=== PATIENT | male | born 1970 | race Caucasian/White ===

== ENCOUNTER 2018-03-22 16:39 | Emergency (ER) | payer MEDICAID ==
--- NOTE | 2018-03-22 17:04 | XRAY ---
Indication: Dislocation. Comparison: None 3 views of the left shoulder demonstrates anterior inferior humeral head dislocation. 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 No other bony, articular, or soft tissue abnormalities.
[2018-03-22] MEDS ORDERED: MORPHINE SULFATE 4 MG INJ IV ONE (17:08)
--- NOTE | 2018-03-22 17:08 | ERPHSYRPT ---
- History of Present Illness Time Seen by Provider: 03/22/18 16:58 Source: patient Exam Limitations: no limitations Patient Subjective Stated Complaint: was reaching and felt shoulder pop out of place.. has hx of dislocation approx 3 weeks ago. Triage Nursing Assessment: alert and obvious deformity to left shoulder. has hx dislocation. + radial pulse present. + cap refill. denies direct injury to the shoulder. Physician History: 47-year-old white male arrives with complaint of dislocated left shoulder symptoms for 1-1/2 hours. According to patient he was reaching and his left shoulder dislocated. He states he had a similar dislocation approximately 3 weeks ago which was reduced in [place]. Patient was apparently a very difficult reduction and had to be transferred from [place] to [place] achieve reduction. Past medical history includes high blood pressure seizures Past surgical history includes negative Social history positive tobacco negative drugs occasional alcohol. Occurred: this afternoon (1-1/2 hours ago) Method of Injury: other (reaching with his arm) Quality: constant Severity of Pain-Max: moderate Severity of Pain-Current: moderate Extremities Pain Location: shoulder: left Modifying Factors: Improves With: nothing Associated Symptoms: none Allergies/Adverse Reactions: No Known Drug Allergies Allergy (Unverified 03/22/18 18:01) Immunizations Up to Date: Yes - Review of Systems Constitutional: No Fever, No Chills Eyes: No Symptoms Ears, Nose, & Throat: No Symptoms Respiratory: No Cough, No Dyspnea Cardiac: No Chest Pain, No Edema, No Syncope Abdominal/Gastrointestinal: No Abdominal Pain, No Nausea, No Vomiting, No Diarrhea Genitourinary Symptoms: No Dysuria Musculoskeletal: Other (left shoulder pain and deformity) Skin: No Rash Neurological: No Dizziness, No Focal Weakness, No Sensory Changes Psychological: No Symptoms Endocrine: No Symptoms All Other Systems: Reviewed and Negative - Past Medical History Pertinent Past Medical History: Yes Neurological History: Seizures Cardiac History: Hypertension - Past Surgical History Past Surgical History: Yes - Social History Smoking Status: Never smoker Exposure to second hand smoke: No Drug Use: none Patient Lives Alone: No - Nursing Vital Signs Nursing Vital Signs: Initial Vital Signs Temperature 98 F 03/22/18 16:51 Pulse Rate 82 03/22/18 16:51 Respiratory Rate 18 03/22/18 16:51 Blood Pressure 173/109 03/22/18 16:51 O2 Sat by Pulse Oximetry 99 03/22/18 16:51 Pain Scale Pain Intensity 6 - Physical Exam General Appearance: mild distress Eyes, Ears, Nose, Throat Exam: moist mucous membranes Neck Exam: non-tender, supple Cardiovascular/Respiratory Exam: chest non-tender, normal breath sounds, regular rate/rhythm, no respiratory distress Abdominal Exam: non-tender, No guarding Back Exam: normal inspection, No vertebral tenderness Shoulder Exam: No normal inspection (left shoulder palpable deformity, decreased range of motion left shoulder, left radial and ulnar pulses intact 2/ 4 good capillary refill left fingers sensation intact left fingers.) Elbow/Forearm Exam: normal inspection, non-tender, no evidence of injury, normal ROM Wrist Exam: normal inspection, non-tender, no evidence of injury, normal ROM Hand Exam: normal inspection, non-tender, no evidence of injury, normal ROM Neuro/Tendon Exam: normal sensation, normal motor functions Mental Status Exam: alert, oriented x 3, cooperative Skin Exam: normal color, warm, dry SpO2 Interpretation: normal (99%) SpO2: 99 - Course Nursing assessment & vital signs reviewed: Yes EKG Interpreted by Me: RATE (75 bpm), NORMAL AXIS, Other (EKG: Sinus rhythm, moderate amount of artifact, 75 bpm, normal axis, no acute ST or T wave changes noted) - Radiology Exams Left Shoulder X-ray Interpretation: Discussed w/ radiologist (x-ray left shoulder: Impression : Anterior inferior humeral head dislocation. 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 No other bony, articulular or soft tissue abnormalies.) Shoulder X-ray Interpretation: Interpreted by me (x-ray left shoulder: Successful reduction left humeral head) Ordered Tests: Active Orders 24 hr Category Date Time Status Trace Evidence Technician STAT Care 03/22/18 17:10 Active EKG-ER Only STAT Care 03/22/18 17:08 Active IV Insertion STAT Care 03/22/18 17:08 Active SHOULDER Stat Exams 03/22/18 16:58 Completed SHOULDER Stat Exams 03/22/18 17:35 Taken Medication Summary Generic Name Dose Route Start Last Admin Trade Name Freq PRN Reason Stop Dose Admin Sodium Chloride 1,000 mls @ 100 mls/hr 03/22/18 17:15 03/22/18 17:15 Sodium Chloride 0.9% 1000 Ml IV 04/21/18 17:14 100 mls/hr .Q10H THADDEUS Administration Discontinued Medications Generic Name Dose Route Start Last Admin Trade Name David PRN Reason Stop Dose Admin Morphine Sulfate 4 mg 03/22/18 17:08 03/22/18 17:17 Morphine Sulfate 4 Mg Inj IV 03/22/18 17:09 4 mg STAT ONE Administration Morphine Sulfate Confirm 03/22/18 17:16 Morphine Sulfate 4 Mg Inj Administered 03/22/18 17:17 Dose 4 mg .ROUTE .STK-MED ONE - Progress Progress: improved Progress Note: 03/22/18 17:35 47-year-old white male with history of multiple right shoulder dislocations in the past. Patient with a left shoulder dislocation approximately 3 weeks ago which was reduced in [place]. He arrives with complaint of pain in deformity of his left shoulder for 1-1/2 hours. He states he was reaching out to at the gate at work when he experienced the above symptoms. On of presentation patient is alert oriented 3. Patient's head is atraumatic nose is clear throat is clear. Airway is clear. Neck is supple. Lungs are clear. Heart is regular. Abdomen soft nontender nondistended positive bowel sounds. Extremities left shoulder with obvious deformity full range of motion left elbow hand and wrist good capillary refill all fingers radial and ulnar pulses intact 2 over 4 sensation intact to all fingers. Neuro patient alert oriented 3 cranial nerves II through XII are intact DTRs symmetrical 2 over 4 [place] Coma Scale is 15. X-ray of the left shoulder is remarkable for an anterior inferior humeral head dislocation there is an incidental inferior glenoid process 7 mm heterotrophic ossification and 1.8 cm humeral head bone cysts no other bony articular soft tissue abnormalities. Patient with a EKG that shows sinus rhythm 75 bpm normal axis no acute ST or T wave changes are noted. Patient's vitals are stable. Procedure. Close reduction left shoulder dislocation. Moderate sedation. Consent is signed for moderate sedation. Patient is given 4 mg of morphine he is started on normal saline 100 mL per hour. Patient is given 140 mg of propofol to achieve sedation. Shoulder is reduced with countertraction and traction in the usual manner. Patient neurovascular intact after reduction sling and swath has been placed. Post reduction films have been ordered. 03/22/18 18:02 Postreduction film left shoulder: Successful reduction no fractures. Patient feeling much better he is awake and alert. Sling and swath applied by patient's nurse. Will send patient home with a small amount of [place] for pain he is to ice and elevate his left shoulder 24-48 hours. It is advised to follow-up with his family doctor or orthopedist in 24-48 hours. - Departure Time of Disposition: 18:15 Departure Disposition: Home Clinical Impression: closed reduction l shoulder dislocation, moderate sedation Dislocation of left shoulder joint Qualifiers: Encounter type: initial encounter Qualified Code(s): S43.005A - Unspecified dislocation of left shoulder joint, initial encounter Condition: Fair Critical Care Time: No Instructions: Shoulder Dislocation Additional Instructions: Return home, Cold packs left shoulder 24-48 hours leave sling on, Follow-up with your orthopedist, family physician, [facility] fracture clinic(tomorrow 8:00 am) [place] 5/325 #12 one orally every 4 hours as needed for pain. Return for acute distress or for severe symptoms. no driving today. Prescriptions: Hydrocodone/APAP 5-325 Tab^^^ [[place] 5-325 Tablet^^^] 1 tab PO Q4HPRN PRN #12 tablet MDD 6 PRN Reason: Pain
[2018-03-22] MEDS ORDERED: DIPRIVAN 200 MG/20 ML IV ONE (17:10)
[2018-03-22] MEDS ORDERED: Sodium Chloride 0.9% 1000 ML 1,000 ML IV SCH (17:15)
[2018-03-22] MEDS ORDERED: MORPHINE SULFATE 4 MG INJ ONE (17:16)
[2018-03-22] MEDS ORDERED: Sodium Chloride 0.9% 1000 ML 1,000 ML ONE (17:18)
[2018-03-22 18:37] VITALS: BP 167/93; PULSE 72; O2SAT 100
--- NOTE | 2018-03-23 08:33 | XRAY ---
Indication: Post reduction. Comparison: Taken earlier in the day. 3 views of the left shoulder demonstrates successful reduction of previous humeral head dislocation. Stable humeral head bone cyst and inferior glenoid process ossifications.
== END 2018-03-22 18:40 | disposition home or self-care (01) ==
LOC: ED 16:39
DX: S43.005A Unspecified dislocation of left shoulder joint, initial encounter (principal); X50.0XXA Overexertion from strenuous movement or load, initial encounter; I10 Essential (primary) hypertension; G40.919 Epilepsy, unspecified, intractable, without status epilepticus
CPT/HCPCS: 23650; 36000; 73030; 93005; 93041; 96374; 99284; J2270; J2704

== ENCOUNTER 2018-06-01 22:10 | Emergency (ER) | payer BC, MEDICAID ==
--- NOTE | 2018-06-01 22:31 | ERPHSYRPT ---
- History of Present Illness Time Seen by Provider: 06/01/18 22:31 Source: patient Exam Limitations: no limitations Patient Subjective Stated Complaint: pt states he was sitting on his cough, sneezed hard, and dislocated his shoulder Triage Nursing Assessment: pt alert and oreinted, answers questions approp. pt ambulatory with steady gait noted, respirations nonlabored with lungs cta. skin pink warm and dry. pt restless in bed. deformity noted to lt shoulder. radila pulse and cap refill wnl to lt arm. Physician History: 47 y/o white male with h/o left shoulder dislocation approx 2 months ago and right shoulder dislocation several years ago. 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 Occurred: just prior to arrival Method of Injury: other (sneezed) Severity of Pain-Max: moderate Severity of Pain-Current: moderate Extremities Pain Location: shoulder: left Modifying Factors: Improves With: immobilization Associated Symptoms: none Allergies/Adverse Reactions: No Known Drug Allergies Allergy (Verified 06/01/18 22:47) Hx Tetanus, Diphtheria Vaccination/Date Given: Yes Hx Influenza Vaccination/Date Given: No Hx Pneumococcal Vaccination/Date Given: No Immunizations Up to Date: Yes - Review of Systems Constitutional: No Symptoms Eyes: No Symptoms Ears, Nose, & Throat: No Symptoms Respiratory: No Symptoms Cardiac: No Symptoms Abdominal/Gastrointestinal: No Symptoms Genitourinary Symptoms: No Symptoms Musculoskeletal: Joint Pain (left shoulder ) Skin: No Symptoms Neurological: No Symptoms Psychological: No Symptoms Hematologic/Lymphatic: No Symptoms Immunological/Allergic: No Symptoms (left shoulder) All Other Systems: Reviewed and Negative - Past Medical History Pertinent Past Medical History: Yes Neurological History: Seizures Cardiac History: Hypertension Respiratory History: No Pertinent History Endocrine Medical History: No Pertinent History Musculoskeletal History: Other (prior bilat shoulder dislocations) GI Medical History: No Pertinent History History: No Pertinent History Psycho-Social History: No Pertinent History Male Reproductive Disorders: No Pertinent History - Past Surgical History Past Surgical History: Yes Neuro Surgical History: No Pertinent History Cardiac: No Pertinent History Respiratory: No Pertinent History Gastrointestinal: No Pertinent History Genitourinary: No Pertinent History Musculoskeletal: No Pertinent History Male Surgical History: No Pertinent History - Social History Smoking Status: Current some day smoker How long have you smoked: yrs Exposure to second hand smoke: No Drug Use: none Patient Lives Alone: Yes - Nursing Vital Signs Nursing Vital Signs: Initial Vital Signs Temperature 98.8 F 06/01/18 22:24 Pulse Rate 85 06/01/18 22:24 Respiratory Rate 18 06/01/18 22:24 Blood Pressure 152/94 06/01/18 22:24 O2 Sat by Pulse Oximetry 98 06/01/18 22:24 Pain Scale Pain Intensity 8 - Physical Exam General Appearance: mild distress, alert, anxiety Eyes, Ears, Nose, Throat Exam: normal ENT inspection, moist mucous membranes Neck Exam: normal inspection, non-tender, supple, full range of motion Cardiovascular/Respiratory Exam: chest non-tender, normal breath sounds, regular rate/rhythm Abdominal Exam: non-tender Back Exam: normal inspection, normal range of motion, No CVA tenderness, No vertebral tenderness Shoulder Exam: bone tenderness, deformity (c/w anteroinferior left shoulder dislocation), soft tissue tenderness Elbow/Forearm Exam: normal inspection, non-tender, no evidence of injury, normal ROM Wrist Exam: normal inspection, non-tender, no evidence of injury, normal ROM Hand Exam: normal inspection, non-tender, no evidence of injury, normal ROM Neuro/Tendon Exam: normal sensation, normal motor functions, normal tendon functions, responds to pain, no evidence tendon injury Mental Status Exam: alert, oriented x 3, cooperative, agitated, uncooperative Skin Exam: normal color, warm, dry SpO2 Interpretation: normal SpO2: 98 O2 Delivery: Room Air Procedures - Joint Reduction Timeout: Performed Joint Reduction Site: Left, shoulder Conscious Sedation: Yes Reduction Attempts: 1 Pre-Procedure Neurovascular Exam: neurovascular intact, well perfused, no neuro deficit Post Procedure Neurovascular Exam: neurovascular intact, good alignment, unchanged from pre-exam Post Joint Reduction Film: joint reduced Progress: pt tolerated well. no complications - Course Nursing assessment & vital signs reviewed: Yes Ordered Tests: Active Orders 24 hr Category Date Time Status IV Insertion STAT Care 06/01/18 22:36 Active SHOULDER Stat Exams 06/01/18 22:35 Ordered SHOULDER Stat Exams 06/01/18 23:22 Ordered Medication Summary Generic Name Dose Route Start Last Admin Trade Name Freq PRN Reason Stop Dose Admin Etomidate 10 mg 06/01/18 23:22 Amidate 20 Mg/10 Ml IV 06/01/18 23:23 STAT ONE Hydromorphone HCl 1 mg 06/01/18 23:23 Hydromorphone 1 Mg/Ml Ampule IV 06/01/18 23:24 STAT ONE Discontinued Medications Generic Name Dose Route Start Last Admin Trade Name David PRN Reason Stop Dose Admin Hydromorphone HCl 1 mg 06/01/18 22:36 06/01/18 22:56 Hydromorphone 1 Mg/Ml Ampule IV 06/01/18 22:37 1 mg STAT ONE Administration Hydromorphone HCl Confirm 06/01/18 22:49 Hydromorphone 1 Mg/Ml Ampule Administered 06/01/18 22:50 Dose 1 mg .ROUTE .STK-MED ONE Hydromorphone HCl Confirm 06/01/18 23:05 Hydromorphone 1 Mg/Ml Ampule Administered 06/01/18 23:06 Dose 1 mg .ROUTE .STK-MED ONE Sodium Chloride Confirm 06/01/18 23:11 Sodium Chloride 0.9% 1000 Ml Administered 06/01/18 23:12 Dose 1,000 mls @ ud .ROUTE .STK-MED ONE Lorazepam 2 mg 06/01/18 22:36 06/01/18 22:56 Ativan 2 Mg/1 Ml Vial IV 06/01/18 22:37 2 mg STAT ONE Administration Lorazepam Confirm 06/01/18 22:48 Ativan 2 Mg/1 Ml Vial Administered 06/01/18 22:49 Dose 2 mg .ROUTE .STK-MED ONE Ondansetron HCl 4 mg 06/01/18 22:36 06/01/18 22:56 Zofran 4 Mg/2 Ml Vial IV 06/01/18 22:37 4 mg STAT ONE Administration Ondansetron HCl Confirm 06/01/18 22:48 Zofran 4 Mg/2 Ml Vial Administered 06/01/18 22:49 Dose 4 mg .ROUTE .STK-MED ONE - Progress Progress: improved, re-examined Progress Note: 06/01/18 23:32 pre reduction xray left shoulder-anteroinferior dislocation. no fx post reduction xrayleft shoulder-successful reduction. no fx Counseled pt/family regarding: diagnosis, need for follow-up, rad results - Departure Departure Disposition: Home Clinical Impression: Dislocation of left shoulder joint
[2018-06-01] MEDS ORDERED: Ativan 2 MG/1 ML VIAL IV ONE (22:36)
[2018-06-01] MEDS ORDERED: Zofran 4 MG/2 ML VIAL IV ONE (22:36)
[2018-06-01] MEDS ORDERED: Hydromorphone 1 mg/ml Ampule IV ONE ×2 (22:36→23:23)
[2018-06-01] MEDS ORDERED: Zofran 4 MG/2 ML VIAL ONE (22:48)
[2018-06-01] MEDS ORDERED: Ativan 2 MG/1 ML VIAL ONE (22:48)
[2018-06-01] MEDS ORDERED: Hydromorphone 1 mg/ml Ampule ONE ×2 (22:49→23:05)
[2018-06-01] MEDS ORDERED: Sodium Chloride 0.9% 1000 ML 1,000 ML ONE (23:11)
[2018-06-01] MEDS ORDERED: Amidate 20 MG/10 ML IV ONE (23:22)
[2018-06-01 23:54] VITALS: PULSE 70
[2018-06-02 00:22] VITALS: BP 123/85; O2SAT 94
[2018-06-02] MEDS ORDERED: Sodium Chloride 0.9% 1000 ML 1,000 ML IV SCH (01:15)
--- NOTE | 2018-06-02 09:23 | XRAY ---
Indication: Shoulder dislocation. Comparison: March 22, 2018. 3 views of the left shoulder demonstrates recurrent anterior inferior humeral head dislocation. Stable inferior glenoid process heterotopic ossification and humeral head bone cyst. No other bony, articular, or soft tissue abnormalities.
--- NOTE | 2018-06-02 09:23 | XRAY ---
Indication: Postreduction. 2 views of the left shoulder demonstrates successful reduction of previous humeral head dislocation with stable humeral head bone cyst and inferior glenoid process ossifications.
== END 2018-06-02 00:35 | disposition home or self-care (01) ==
LOC: ED 22:10
DX: S43.005A Unspecified dislocation of left shoulder joint, initial encounter (principal); X50.0XXA Overexertion from strenuous movement or load, initial encounter; M25.512 Pain in left shoulder; G40.909 Epilepsy, unspecified, not intractable, without status epilepticus; I10 Essential (primary) hypertension
CPT/HCPCS: 23650; 36000; 73030; 96360; 96374; 96375; 96376; 99284; J1170; J2060; J2405

== ENCOUNTER 2018-06-27 07:15 | Emergency (ER) | payer BC ==
[2018-06-27] MEDS ORDERED: Sodium Chloride 0.9% 1000 ML 1,000 ML IV STA (07:39)
[2018-06-27] MEDS ORDERED: Sodium Chloride 0.9% 1000 ML 1,000 ML ONE ×2 (07:55→09:41)
[2018-06-27] MEDS ORDERED: Hydromorphone 1 mg/ml Ampule IV ONE ×3 (07:55→10:40)
[2018-06-27] MEDS ORDERED: Hydromorphone 1 mg/ml Ampule ONE ×3 (07:58→10:43)
[2018-06-27] MEDS ORDERED: Ativan 2 MG/1 ML VIAL IV ONE (08:08)
[2018-06-27] MEDS ORDERED: Ativan 2 MG/1 ML VIAL ONE (08:11)
--- NOTE | 2018-06-27 08:41 | XRAY ---
Indication: Shoulder dislocation. Comparison: June 01, 2018. 2 views of the left shoulder again demonstrates anterior inferior humeral head dislocation. Stable humeral head bone cyst. No other bony, articular, or soft tissue abnormalities.
--- NOTE | 2018-06-27 08:45 | XRAY ---
Indication: Repeat dislocation. Comparison: Taken earlier in the day. 3 views of the left shoulder unchanged again demonstrating anterior inferior humeral head dislocation and humeral head bone cyst. No other bony, articular, or soft tissue abnormalities.
[2018-06-27] MEDS ORDERED: Amidate 20 MG/10 ML IV ONE (08:48)
[2018-06-27] MEDS ORDERED: Sodium Chloride 0.9% 1000 ML 1,000 ML IV SCH (09:30)
--- NOTE | 2018-06-27 09:47 | ERPHSYRPT ---
- History of Present Illness Source: patient Exam Limitations: no limitations Patient Subjective Stated Complaint: pt reports his left shoulder is dislocated , states he was rolling over to shut his alarm clock off when it dislocated, reports he was here recently for this same issue. pt reports pain is worse with movement of the left arm. Triage Nursing Assessment: pt is aox3, pupils perrl, afebrile, resps easy and non labored, radial pulses strong and equal, sensation is intact, obvious deformity noted to the left shoulder. ROM limited due to pain. pain increased with movement of the left extremity. Physician History: Pt is a 47 y/o male with extensive h/o L shoulder dislocation. Pt woke up today , and reached out to close the alarm clock, and his L shoulder dislocated. Pt is in marked pain and discomfort. He states, was recommended to f/u with Ortho , but as of now, he did not had to have surgery. Occurred: just prior to arrival Quality: sharpness, stabbing, throbbing Severity of Pain-Max: severe Severity of Pain-Current: severe Extremities Pain Location: shoulder: left (dislocated) Modifying Factors: Improves With: immobilization, pain medication Associated Symptoms: none Allergies/Adverse Reactions: No Known Drug Allergies Allergy (Verified 06/27/18 07:32) Hx Tetanus, Diphtheria Vaccination/Date Given: Yes Hx Influenza Vaccination/Date Given: No Hx Pneumococcal Vaccination/Date Given: No Immunizations Up to Date: Yes - Review of Systems Constitutional: No Fever, No Chills Respiratory: No Cough, No Dyspnea Cardiac: No Chest Pain, No Edema, No Syncope Musculoskeletal: Joint Pain (L shoulder), Joint Swelling Neurological: No Dizziness, No Focal Weakness, No Sensory Changes - Past Medical History Pertinent Past Medical History: Yes Neurological History: Seizures Cardiac History: Hypertension Respiratory History: No Pertinent History Endocrine Medical History: No Pertinent History Musculoskeletal History: Other GI Medical History: No Pertinent History History: No Pertinent History Psycho-Social History: No Pertinent History Male Reproductive Disorders: No Pertinent History Other Medical History: shoulder dislocation - Past Surgical History Past Surgical History: Yes Neuro Surgical History: No Pertinent History Cardiac: No Pertinent History Respiratory: No Pertinent History Gastrointestinal: No Pertinent History Genitourinary: No Pertinent History Musculoskeletal: No Pertinent History Male Surgical History: No Pertinent History - Social History Smoking Status: Current every day smoker How long have you smoked: yrs Exposure to second hand smoke: No Drug Use: none Patient Lives Alone: No - Nursing Vital Signs Nursing Vital Signs: Initial Vital Signs Temperature 97.9 F 06/27/18 07:20 Pulse Rate 82 06/27/18 07:20 Respiratory Rate 20 06/27/18 07:20 Blood Pressure 133/83 06/27/18 07:20 O2 Sat by Pulse Oximetry 100 06/27/18 07:20 Pain Scale Pain Intensity 5 - Physical Exam General Appearance: moderate distress Back Exam: normal inspection, No vertebral tenderness Shoulder Exam: asymmetry (L sholder anterior dislocation), deformity, limited ROM Elbow/Forearm Exam: normal inspection Wrist Exam: normal inspection Hand Exam: normal inspection Neuro/Tendon Exam: normal sensation, normal motor functions SpO2: 98 - Course Nursing assessment & vital signs reviewed: Yes - Radiology Exams Left Shoulder X-ray Interpretation: Reviewed by me (L shoulder with anterior inferior dislocation) Ordered Tests: Active Orders 24 hr Category Date Time Status IV Insertion STAT Care 06/27/18 10:07 Active SHOULDER Stat Exams 06/27/18 07:40 Completed SHOULDER Stat Exams 06/27/18 08:23 Completed SHOULDER Stat Exams 06/27/18 09:18 Completed Medication Summary Generic Name Dose Route Start Last Admin Trade Name Freq PRN Reason Stop Dose Admin Sodium Chloride 1,000 mls @ 100 mls/hr 06/27/18 09:30 06/27/18 09:35 Sodium Chloride 0.9% 1000 Ml IV 07/27/18 09:29 100 mls/hr .Q10H THADDEUS Administration Discontinued Medications Generic Name Dose Route Start Last Admin Trade Name Freq PRN Reason Stop Dose Admin Etomidate 10 mg 06/27/18 08:48 06/27/18 09:06 Amidate 20 Mg/10 Ml IV 06/27/18 08:49 10 mg STAT ONE Administration Hydromorphone HCl 1 mg 06/27/18 07:55 06/27/18 08:02 Hydromorphone 1 Mg/Ml Ampule IV 06/27/18 07:56 1 mg STAT ONE Administration Hydromorphone HCl Confirm 06/27/18 07:58 Hydromorphone 1 Mg/Ml Ampule Administered 06/27/18 07:59 Dose 1 mg .ROUTE .STK-MED ONE Hydromorphone HCl Confirm 06/27/18 09:23 Hydromorphone 1 Mg/Ml Ampule Administered 06/27/18 09:24 Dose 1 mg .ROUTE .STK-MED ONE Hydromorphone HCl 1 mg 06/27/18 09:25 06/27/18 09:25 Hydromorphone 1 Mg/Ml Ampule IV 06/27/18 09:26 1 mg STAT ONE Administration Sodium Chloride 1,000 mls @ 999 mls/hr 06/27/18 07:39 06/27/18 09:40 Sodium Chloride 0.9% 1000 Ml IV 06/27/18 08:39 Infused .Q1H1M STA Infusion Sodium Chloride Confirm 06/27/18 07:55 Sodium Chloride 0.9% 1000 Ml Administered 06/27/18 07:56 Dose 1,000 mls @ ud .ROUTE .STK-MED ONE Sodium Chloride Confirm 06/27/18 09:41 Sodium Chloride 0.9% 1000 Ml Administered 06/27/18 09:42 Dose 1,000 mls @ ud .ROUTE .STK-MED ONE Lorazepam 2 mg 06/27/18 08:08 06/27/18 08:12 Ativan 2 Mg/1 Ml Vial IV 06/27/18 08:09 2 mg STAT ONE Administration Lorazepam Confirm 06/27/18 08:11 Ativan 2 Mg/1 Ml Vial Administered 06/27/18 08:12 Dose 2 mg .ROUTE .STK-MED ONE - Progress Progress: unchanged Progress Note: 06/27/18 09:44 Pt presented with L shoulder dislocation. I did give the pt Dilaudid 1mgx2, Ativan IV 2mg and Etomidate 10mg IV. Multiple attempts were made, and as I do feel that the shoulder is getting in place, with ROM, it is immediately dislocated. Secondary to multiple attempts with no resolution, and Pt with extensive history of dislocation, [facility] and pt was auto accepted. Dr Morgan accepted. 06/27/18 10:40 Will see patient in: other (Transfer pt to [facility]) - Departure Departure Disposition: Transfer Clinical Impression: Recurrent dislocation, left shoulder Condition: Stable Critical Care Time: No Referrals: DOCTOR,NO FAMILY [Primary Care Provider] - Additional Instructions: Pt to be transferred to [facility]. Dr Morgan is accepting.
--- NOTE | 2018-06-27 10:07 | XRAY ---
Indication: Post reduction. 3 frontal views of the left shoulder unchanged again demonstrating anterior inferior humeral head dislocation and humeral head bone cyst.
[2018-06-27 10:40] VITALS: O2SAT 98
[2018-06-27 11:32] VITALS: BP 132/95; PULSE 73
== END 2018-06-27 11:31 | disposition short-term general hospital (02) ==
LOC: ED 07:15
DX: M24.412 Recurrent dislocation, left shoulder (principal); X50.0XXA Overexertion from strenuous movement or load, initial encounter; X50.9XXA Other and unspecified overexertion or strenuous movements or postures, initial encounter; Y93.89 Activity, other specified; Y92.003 Bedroom of unspecified non-institutional (private) residence as the place of occurrence of the external cause
CPT/HCPCS: 36000; 73030; 96360; 96361; 96374; 96375; 96376; 99285; J1170; J2060; L3650

== ENCOUNTER 2018-10-21 18:36 | Emergency (ER) | payer BC ==
[2018-10-21 18:48] VITALS: BP 126/83; PULSE 100; O2SAT 96
--- NOTE | 2018-10-21 19:14 | ERPHSYRPT ---
- History of Present Illness Time Seen by Provider: 10/21/18 19:05 Source: patient Exam Limitations: no limitations Patient Subjective Stated Complaint: Getting out of hot tub and dislocated left shoulder, hx of left shoulder dislocation x2 previously Triage Nursing Assessment: Pt walked into the ER holding his left arm up, vitals wnl, rates pain 5/10, left shoulder appears dislocated, pulses normal, capillary refill normal Physician History: patient states that the Left shoulder was dislocated - getting out of hot tub - has happened twice in the past. This time in ER apparently went over for XRay and he raised arm overhead and it "popped' yazmin into place. No X Ray shows on the rad screen and patient was seen in Room 4. Wants to leave and follow up with his primary care. He cannot remember the name of the ortho person he saw before with this same shoulder problem. Demonstrates normal ROM. Has sling at home and says will use it. Occurred: just prior to arrival Method of Injury: other (lifting himself out of hot tub) Quality: constant Severity of Pain-Max: moderate Severity of Pain-Current: none (Resoved when self reduced) Extremities Pain Location: shoulder: left Modifying Factors: Improves With: nothing Associated Symptoms: none Allergies/Adverse Reactions: No Known Drug Allergies Allergy (Verified 10/21/18 18:47) Home Medications: Amlodipine Besylate 10 mg PO DAILY 10/21/18 [History] Labetalol HCl 100 mg [Trandate 100 MG] 100 mg PO DAILY 10/21/18 [History] Levetiracetam 500 mg PO UD 10/21/18 [History] Lisinopril 10 mg [Zestril 10 MG] 10 mg PO DAILY 10/21/18 [History] cloNIDine HCl [Clonidine HCl] 0.1 mg PO DAILY 10/21/18 [History] lamoTRIgine [Lamotrigine] 200 mg PO BID 10/21/18 [History] Hx Tetanus, Diphtheria Vaccination/Date Given: Yes Hx Influenza Vaccination/Date Given: No Hx Pneumococcal Vaccination/Date Given: No - Review of Systems Constitutional: No Symptoms Musculoskeletal: Injury (Left shoulder dislocation) Neurological: No Symptoms All Other Systems: Reviewed and Negative - Past Medical History Pertinent Past Medical History: Yes Neurological History: Seizures Cardiac History: Hypertension Respiratory History: No Pertinent History Endocrine Medical History: No Pertinent History Musculoskeletal History: Other GI Medical History: No Pertinent History History: No Pertinent History Psycho-Social History: No Pertinent History Male Reproductive Disorders: No Pertinent History Other Medical History: shoulder dislocation - Past Surgical History Past Surgical History: Yes Neuro Surgical History: No Pertinent History Cardiac: No Pertinent History Respiratory: No Pertinent History Gastrointestinal: No Pertinent History Genitourinary: No Pertinent History Musculoskeletal: No Pertinent History Male Surgical History: No Pertinent History - Social History Smoking Status: Current every day smoker How long have you smoked: yrs Exposure to second hand smoke: Yes Drug Use: none Patient Lives Alone: Yes - Nursing Vital Signs Nursing Vital Signs: Initial Vital Signs Temperature 98.2 F 10/21/18 18:39 Pulse Rate 100 H 10/21/18 18:39 Blood Pressure 126/83 10/21/18 18:39 O2 Sat by Pulse Oximetry 96 10/21/18 18:39 Pain Scale Pain Intensity 5 - Physical Exam General Appearance: no apparent distress Eyes, Ears, Nose, Throat Exam: normal ENT inspection Cardiovascular/Respiratory Exam: chest non-tender, normal breath sounds, no respiratory distress Shoulder Exam: normal inspection, non-tender, no evidence of injury (No contour deformity when seen by me - after self reduction) Elbow/Forearm Exam: normal inspection, non-tender Wrist Exam: normal inspection, non-tender Hand Exam: normal inspection, non-tender Neuro/Tendon Exam: normal sensation, normal motor functions Mental Status Exam: alert, oriented x 3, cooperative Skin Exam: normal color, warm, dry SpO2 Interpretation: normal SpO2: 96 O2 Delivery: Room Air - Departure Departure Disposition: Home Clinical Impression: Shoulder dislocation, recurrent Condition: Good Critical Care Time: No Referrals: DOCTOR,NO FAMILY [Primary Care Provider] - Instructions: Shoulder Dislocation Additional Instructions: Follow up with primary care as planned - also follow up with the orthopedic surgeon who saw you the last time. Use your sling until you have seen either primary care or ortho.
== END 2018-10-21 19:22 | disposition home or self-care (01) ==
LOC: ED 18:36
DX: M24.412 Recurrent dislocation, left shoulder (principal); X50.0XXA Overexertion from strenuous movement or load, initial encounter; Y92.89 Other specified places as the place of occurrence of the external cause; M25.512 Pain in left shoulder
CPT/HCPCS: 99283

== ENCOUNTER 2019-04-14 00:42 | Emergency (ER) | payer SELFPAY ==
--- NOTE | 2019-04-14 00:46 | ERPHSYRPT ---
- History of Present Illness Time Seen by Provider: 04/14/19 00:45 Source: patient, family Exam Limitations: no limitations Physician History: This is a 48-year-old right-handed male who has been seen several times in this emergency room for left shoulder dislocation. Prior to arrival, patient was in his car and he reached over with his left arm to grab something out of the back seat when his left shoulder became dislocated. Patient has a history of hypertension. Patient has no known drug allergies. Patient has significant pain in his left shoulder. Occurred: just prior to arrival Method of Injury: other (Patient reached out and back then dislocated his left shoulder) Quality: aching, throbbing Severity of Pain-Max: moderate Severity of Pain-Current: moderate Extremities Pain Location: shoulder: left Modifying Factors: Improves With: movement Associated Symptoms: none Allergies/Adverse Reactions: No Known Drug Allergies Allergy (Verified 04/14/19 01:04) Home Medications: Amlodipine Besylate 10 mg PO DAILY 10/21/18 [History] Labetalol HCl 100 mg [Trandate 100 MG] 100 mg PO DAILY 10/21/18 [History] Levetiracetam 500 mg PO DAILY 10/21/18 [History] Lisinopril 10 mg [Zestril 10 MG] 10 mg PO DAILY 10/21/18 [History] cloNIDine HCL [Clonidine HCl] 0.1 mg PO DAILY 10/21/18 [History] lamoTRIgine [Lamotrigine] 200 mg PO BID 10/21/18 [History] Hx Tetanus, Diphtheria Vaccination/Date Given: Yes Hx Influenza Vaccination/Date Given: No Hx Pneumococcal Vaccination/Date Given: No - Review of Systems Constitutional: No Symptoms Eyes: No Symptoms Ears, Nose, & Throat: No Symptoms Respiratory: No Symptoms Cardiac: No Symptoms Abdominal/Gastrointestinal: No Symptoms Genitourinary Symptoms: No Symptoms Musculoskeletal: Injury (Left shoulder) Skin: No Symptoms Neurological: No Symptoms Psychological: No Symptoms Endocrine: No Symptoms Hematologic/Lymphatic: No Symptoms Immunological/Allergic: No Symptoms All Other Systems: Reviewed and Negative - Past Medical History Pertinent Past Medical History: Yes Neurological History: Seizures Cardiac History: Hypertension Respiratory History: No Pertinent History Endocrine Medical History: No Pertinent History Musculoskeletal History: Other GI Medical History: No Pertinent History History: No Pertinent History Psycho-Social History: No Pertinent History Male Reproductive Disorders: No Pertinent History Other Medical History: shoulder dislocation - Past Surgical History Past Surgical History: Yes Neuro Surgical History: No Pertinent History Cardiac: No Pertinent History Respiratory: No Pertinent History Gastrointestinal: No Pertinent History Genitourinary: No Pertinent History Musculoskeletal: No Pertinent History Male Surgical History: No Pertinent History - Social History Smoking Status: Current every day smoker How long have you smoked: yrs Exposure to second hand smoke: Yes Drug Use: none Patient Lives Alone: Yes - Nursing Vital Signs Nursing Vital Signs: Initial Vital Signs Temperature 97.9 F 04/14/19 00:53 Pulse Rate 91 H 04/14/19 00:53 Respiratory Rate 18 04/14/19 00:53 Blood Pressure 175/105 04/14/19 00:53 O2 Sat by Pulse Oximetry 97 04/14/19 00:53 Pain Scale Pain Intensity 0 - Physical Exam General Appearance: mild distress, alert, anxiety Eyes, Ears, Nose, Throat Exam: normal ENT inspection Neck Exam: normal inspection, non-tender, supple, full range of motion Cardiovascular/Respiratory Exam: chest non-tender Abdominal Exam: non-tender Back Exam: normal inspection, normal range of motion, No CVA tenderness, No vertebral tenderness Shoulder Exam: bone tenderness (Left lateral upper indentation at the left shoulder joint), deformity, limited ROM, soft tissue tenderness Elbow/Forearm Exam: normal inspection, non-tender, no evidence of injury, normal ROM Wrist Exam: normal inspection, non-tender, no evidence of injury, normal ROM Hand Exam: normal inspection, non-tender, no evidence of injury, normal ROM Neuro/Tendon Exam: normal sensation, normal motor functions, normal tendon functions, responds to pain Mental Status Exam: alert, oriented x 3, cooperative Skin Exam: normal color, warm, dry SpO2 Interpretation: normal O2 Delivery: Room Air - Course Nursing assessment & vital signs reviewed: Yes Ordered Tests: Active Orders 24 hr Category Date Time Status IV Insertion STAT Care 04/14/19 01:00 Active SHOULDER Stat Exams 04/14/19 01:00 Taken SHOULDER Stat Exams 04/14/19 01:35 Ordered Medication Summary Discontinued Medications Generic Name Dose Route Start Last Admin Trade Name Freq PRN Reason Stop Dose Admin Etomidate 10 mg 04/14/19 01:14 04/14/19 01:31 Amidate 20 Mg/10 Ml IV 04/14/19 01:15 10 mg STAT ONE Administration Hydromorphone HCl 1 mg 04/14/19 01:13 04/14/19 01:28 Hydromorphone 1 Mg/Ml Ampule IV 04/14/19 01:14 1 mg STAT ONE Administration Hydromorphone HCl Confirm 04/14/19 01:15 Hydromorphone 1 Mg/Ml Ampule Administered 04/14/19 01:16 Dose 1 mg .ROUTE .STK-MED ONE Ondansetron HCl 4 mg 04/14/19 01:13 04/14/19 01:29 Zofran 4 Mg/2 Ml Vial IV 04/14/19 01:14 4 mg STAT ONE Administration Ondansetron HCl Confirm 04/14/19 01:15 Zofran 4 Mg/2 Ml Vial Administered 04/14/19 01:16 Dose 4 mg .ROUTE .STK-MED ONE - Progress Progress: improved, re-examined Progress Note: 04/14/19 01:41 Patient tolerated the procedure well. 04/14/19 01:43 pre-reduction x-ray of the left shoulder reveals an anteriormedial dislocation. No evidence of acute fracture present. 04/14/19 01:52 Post reduction x-ray of the left shoulder reveals successful reduction of left shoulder dislocation. No evidence of acute fracture present Counseled pt/family regarding: diagnosis, need for follow-up, rad results - Departure Departure Disposition: Home Clinical Impression: Recurrent dislocation, left shoulder Condition: Stable Critical Care Time: No Referrals: MILLER OSORIO [Primary Care Provider] - Additional Instructions: Wear sling for comfort and to help reduce the possibility of recurrent dislocation. Follow-up with your orthopedic surgeon for further management. Prescriptions: Oxycodone HCl/Acetaminophen [Percocet 5-325 mg Tablet] 1 each PO Q8H PRN PRN #6 tablet MDD 3 PRN Reason: Pain
[2019-04-14] MEDS ORDERED: Zofran 4 MG/2 ML VIAL IV ONE (01:13)
[2019-04-14] MEDS ORDERED: Hydromorphone 1 mg/ml Ampule IV ONE (01:13)
[2019-04-14] MEDS ORDERED: Amidate 20 MG/10 ML IV ONE (01:14)
[2019-04-14] MEDS ORDERED: Hydromorphone 1 mg/ml Ampule ONE (01:15)
[2019-04-14] MEDS ORDERED: Zofran 4 MG/2 ML VIAL ONE (01:15)
[2019-04-14] MEDS ORDERED: TRANDATE 20 MG/5 ML SYRINGE IV ONE ×2 (01:58→02:22)
[2019-04-14 03:10] VITALS: BP 150/99; PULSE 76; O2SAT 96
--- NOTE | 2019-04-14 08:44 | XRAY ---
Indication: Shoulder dislocation. Comparison: June 27, 2018. 2 views of the left shoulder again demonstrates anterior inferior humeral head dislocation with small humeral head bone cyst. No other bony, articular, or soft tissue abnormalities.
--- NOTE | 2019-04-14 08:46 | XRAY ---
Indication: Post reduction. Comparison: Taken earlier in the day. AP left shoulder demonstrates successful reduction of previous humeral head dislocation with stable humeral head bone cyst. No new acute findings.
== END 2019-04-14 03:17 | disposition home or self-care (01) ==
LOC: ED 00:42
DX: M24.412 Recurrent dislocation, left shoulder (principal); M25.512 Pain in left shoulder; I10 Essential (primary) hypertension; X50.0XXA Overexertion from strenuous movement or load, initial encounter; Z87.891 Personal history of nicotine dependence
CPT/HCPCS: 23650; 36000; 73030; 94799; 96374; 96375; 99284; 99291; J1170; J2405

== ENCOUNTER 2019-12-05 17:11 | Emergency (ER) | payer SELFPAY ==
[2019-12-05 17:41] VITALS: O2SAT 97
--- NOTE | 2019-12-05 18:45 | ERPHSYRPT ---
- History of Present Illness Time Seen by Provider: 12/05/19 18:15 Historian: patient, family Exam Limitations: no limitations Patient Subjective Stated Complaint: pt states that he hasn't had a bowel movement since last Tuesday and his lower abdomen is extremely painful and it's preventing him from sleeping, pt has tried all things except an enema Triage Nursing Assessment: Pt brought to the ER by his mother, hypertensive, pt reports having a stroke approx 2 weeks ago that did effect his left side but has almost 100% back, pt was placed on blood thinner and new blood pressure meds plus changed dosage on some as well, pt rates his abdominal pain as 8/10, pt denies change of diet, pt denies being on pain killers, pt states that he usually has a bowel movement daily, pt's abdomen is distended Physician History: This is a 49-year-old white male who presents with 5-day history of constipation. Patient is normally regular in terms of his bowel movements. He is having some lower abdominal crampy pain. Patient has tried stool softeners, MiraLAX and a half a bottle of magnesium citrate earlier today without benefit. Patient denies shortness of breath and he denies chest pain. Patient has not had any diarrhea or vomiting. Patient has never had a colonoscopy. Timing/Duration: day(s) (5) Activities at Onset: none Quality: cramping (Mild suprapubic cramping) Abdominal Pain Onset Location: suprapubic Pain Radiation: no radiation Severity of Pain-Max: mild Severity of Pain-Current: mild Modifying Factors: Improves With: other (Constipation) Associated Symptoms: other (The patient) Previous symptoms: no prior history Allergies/Adverse Reactions: No Known Drug Allergies Allergy (Verified 12/05/19 17:42) Home Medications: Amlodipine Besylate 10 mg PO DAILY 10/21/18 [History] Levetiracetam 500 mg PO DAILY 10/21/18 [History] cloNIDine HCL [Clonidine HCl] 0.1 mg PO DAILY 10/21/18 [History] lamoTRIgine [Lamotrigine] 200 mg PO BID 10/21/18 [History] Atorvastatin Calcium 80 mg PO DAILY 12/05/19 [History] Carvedilol 12.5 mg [Coreg 12.5 mg] 12.5 mg PO DAILY 12/05/19 [History] Hydralazine HCl 50 mg PO Q8H 12/05/19 [History] Warfarin Sodium 5 mg [Coumadin 5 MG] 5 mg PO UD 12/05/19 [History] Hx Tetanus, Diphtheria Vaccination/Date Given: Yes Hx Influenza Vaccination/Date Given: No Hx Pneumococcal Vaccination/Date Given: No Travel Risk - International Travel Have you traveled outside of the country in past 3 weeks: No - Coronavirus Screening Are you exhibiting any of the following symptoms?: No Close contact with a COVID-19 positive Pt in past 14-21 Days: No - Review of Systems Constitutional: No Symptoms Eyes: No Symptoms Ears, Nose, & Throat: No Symptoms Respiratory: No Symptoms Cardiac: No Symptoms Abdominal/Gastrointestinal: Abdominal Pain (Lower/suprapubic), Constipation Genitourinary Symptoms: No Symptoms Musculoskeletal: No Symptoms Skin: No Symptoms Neurological: No Symptoms Psychological: No Symptoms Endocrine: No Symptoms Hematologic/Lymphatic: No Symptoms Immunological/Allergic: No Symptoms All Other Systems: Reviewed and Negative - Past Medical History Pertinent Past Medical History: Yes Neurological History: Seizures, Stroke ENT History: No Pertinent History Cardiac History: Hypertension Respiratory History: No Pertinent History Endocrine Medical History: No Pertinent History Musculoskeletal History: Other GI Medical History: No Pertinent History History: No Pertinent History Psycho-Social History: No Pertinent History Male Reproductive Disorders: No Pertinent History Other Medical History: shoulder dislocation - Past Surgical History Past Surgical History: Yes Neuro Surgical History: No Pertinent History Cardiac: No Pertinent History Respiratory: No Pertinent History Gastrointestinal: No Pertinent History Genitourinary: No Pertinent History Musculoskeletal: No Pertinent History Male Surgical History: No Pertinent History - Social History Smoking Status: Current every day smoker How long have you smoked: yrs Exposure to second hand smoke: Yes Drug Use: none Patient Lives Alone: Yes - Nursing Vital Signs Nursing Vital Signs: Initial Vital Signs Temperature 98.1 F 12/05/19 17:23 Pulse Rate 75 12/05/19 17:23 Blood Pressure 149/93 12/05/19 17:23 O2 Sat by Pulse Oximetry 97 12/05/19 17:23 Pain Scale Pain Intensity 4 - Physical Exam General Appearance: mild distress, alert, anxiety Eye Exam: PERRL/EOMI, eyes nml inspection Ears, Nose, Throat Exam: normal ENT inspection, moist mucous membranes Neck Exam: normal inspection, non-tender, supple, full range of motion Respiratory Exam: normal breath sounds, lungs clear, airway intact, No chest tenderness, No respiratory distress Cardiovascular Exam: regular rate/rhythm, normal heart sounds, normal peripheral pulses Gastrointestinal/Abdomen Exam: soft, normal bowel sounds, tenderness (Mild suprapubic), other (No masses), No distention, No guarding, No pulsatile mass, No rebound Rectal Exam: not done Back Exam: normal inspection, normal range of motion, No CVA tenderness, No vertebral tenderness Extremity Exam: normal inspection, normal range of motion, pelvis stable Neurologic Exam: alert, oriented x 3, cooperative, body team member II-XII nml as tested, normal mood/affect, nml cerebellar function, nml station & gait, sensation nml Skin Exam: normal color, warm, dry Lymphatic Exam: No adenopathy SpO2: 97 O2 Delivery: Room Air - Course Nursing assessment & vital signs reviewed: Yes Ordered Tests: Active Orders 24 hr Category Date Time Status Enema STAT Care 12/05/19 18:17 Active Enema STAT Care 12/05/19 19:21 Ordered Medication Summary Discontinued Medications Generic Name Dose Route Start Last Admin Trade Name Getachewq PRN Reason Stop Dose Admin Magnesium Citrate 296 ml 12/05/19 19:21 Citroma 296 Ml PO 12/05/19 19:22 STAT ONE - Progress Progress: improved, re-examined Progress Note: 12/05/19 19:22 Patient is beginning to have a response to the soapsuds enema. His pain is improving. He feels that he is not completely evacuated. We discussed the plan of providing the patient with a full bottle of magnesium citrate which she is to take and drink at home rapidly. He is then to give himself a fleets enema rectally approximately half hour to 45 minutes after ingestion of the bottle of mag citrate. We also provide the patient with a fleets enema to take home and use. Counseled pt/family regarding: diagnosis, need for follow-up - Departure Departure Disposition: Home Clinical Impression: Constipation Condition: Stable Critical Care Time: No Referrals: MILLER OSORIO [Primary Care Provider] - Additional Instructions: Drink plenty of fluids. Drink the magnesium citrate rapidly when you get home. Wait 30 to 45 minutes after the ingestion of the magnesium citrate and give yourself a fleets enema rectally. Follow-up with your primary care physician to make arrangements for a colonoscopy in the future.
[2019-12-05 19:21] VITALS: BP 125/80; PULSE 72
[2019-12-05] MEDS ORDERED: CITROMA 296 ML PO ONE (19:21)
[2019-12-05] MEDS ORDERED: CITROMA 296 ML ONE (19:22)
== END 2019-12-05 19:35 | disposition home or self-care (01) ==
LOC: ED 17:11
DX: K59.00 Constipation, unspecified (principal)
CPT/HCPCS: 99283; A9270-GY